=== PATIENT | female | born 1975 | race Caucasian/White ===

== ENCOUNTER 2018-05-27 08:54 | Outpatient (CLI) | payer OTHER ==
[~2018-05-27 08:54] MED LIST: CIPRO500 MG PO; LEVSIN0.125 MG PO; OSEL75CA PO; PROTONIX20 MG PO; PROTONIX40 MG PO; TUSSI PRES-B L120 M1 PO; ZANTAC300 MG PO; ZOFRAN4 MG PO
== END 2018-05-27 09:12 | disposition home or self-care (01) ==
LOC: RAD 08:54 → MAMO-SONO 09:15
DX: K80.00 Calculus of gallbladder with acute cholecystitis without obstruction (principal); R10.11 Right upper quadrant pain